=== PATIENT | female | born 1995 | race Caucasian/White ===

== ENCOUNTER → 2019-01-31 | Outpatient (CLI) | payer BC ==
[~2019-01-31] MED LIST: GADOBUTROL 10 ML VIAL IVP ONE
== END ==
LOC: FIMAGING 06:50
PROVIDERS: ATTEND Physician Assistant Medical
DX: M79.2 Neuralgia and neuritis, unspecified (principal); R20.2 Paresthesia of skin; R25.2 Cramp and spasm; R90.89 Other abnormal findings on diagnostic imaging of central nervous system
CPT/HCPCS: A9585